=== PATIENT | male | born 1990 | race Caucasian/White ===

== ENCOUNTER 2021-05-22 19:06 | Emergency (ER) | payer OTHER ==
[2021-05-22] MEDS ORDERED: hydrOXYzine HCl 25 MG Tab PO ONE (20:25)
--- NOTE | 2021-05-22 20:30 | EDM.PDOC ---
ED HPI GENERAL MEDICAL PROBLEM - General Chief Complaint: Skin Complaint Stated Complaint: ALL OVER BODY HIVES Time Seen by Provider: 05/22/21 20:05 Source of Information: Reports: Patient, RN Notes Reviewed History Limitations: Reports: No Limitations - History of Present Illness INITIAL COMMENTS - FREE TEXT/NARRATIVE: Genaro presents today with complaints of itching rash/hives to body for 7 days. He reports the rash started mostly on his arms. The rash is now spread to his chest, abdomen, back, trunk, legs, scalp. No rash to buttocks, plantar surface of feet or palms. He was seen and evaluated at a walk in clinic in [place] on MondayMay 19 and started on prednisone with benadryl. He started prednisone on 05/21/2021. 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 He denies any other exposure to any changes, allergens or use of different topicals. He denies fever, chills, nausea, vomiting, diarrhea or other concerns. denies pain Pain Score (Numeric/FACES): 0 - Related Data Allergies Allergy/AdvReac Type Severity Reaction Status Date / Time No Known Allergies Allergy Verified 05/22/21 19:47 Home Meds: Home Meds FLUoxetine HCl [Prozac] 20 mg PO DAILY 05/22/21 [History] Gabapentin [Neurontin] 600 mg PO DAILY 05/22/21 [History] Triamcinolone Acetonide [Triamcinolone Acetonide 0.1% Crm] 1 applic TOP TID PRN 05/22/21 [History] predniSONE [Prednisone] 40 mg PO DAILY 05/22/21 [History] Past Medical History HEENT History: Reports: Impaired Vision, Other (See Below) Other HEENT History: contacts Musculoskeletal History: Reports: Other (See Below) Other Musculoskeletal History: right shoulder dislocation Psychiatric History: Reports: Anxiety, Depression - Infectious Disease History Infectious Disease History: Reports: Chicken Pox - Past Surgical History HEENT Surgical History: Reports: Tonsillectomy Social & Family History - Tobacco Use Tobacco Use Comment: Pt vapes - Recreational Drug Use Recreational Drug Use: No ED ROS GENERAL - Review of Systems Review Of Systems: See Below Constitutional: Denies: Fever, Chills, Malaise, Weakness, Fatigue, Diaphoresis HEENT: Reports: No Symptoms Respiratory: Reports: No Symptoms Cardiovascular: Reports: No Symptoms Endocrine: Reports: No Symptoms GI/Abdominal: Reports: No Symptoms : Reports: No Symptoms Musculoskeletal: Reports: No Symptoms Skin: Reports: Pruritis, Rash, Urticaria. Denies: Mottled, Pallor, Diaphoresis Neurological: Reports: No Symptoms Psychiatric: Reports: No Symptoms Hematologic/Lymphatic: Reports: No Symptoms Immunologic: Reports: No Symptoms ED EXAM, SKIN/RASH Exam: See Below Exam Limited By: No Limitations General Appearance: Alert, WD/WN, No Apparent Distress Course - Vital Signs Last Recorded V/S: Last Vital Signs Temp 36.6 C 05/22/21 19:55 Pulse 84 05/22/21 19:55 Resp 16 05/22/21 19:55 BP 124/65 05/22/21 19:55 Pulse Ox 95 05/22/21 19:55 - Orders/Labs/Meds Meds: Medications Discontinued Medications Generic Name Dose Route Start Last Admin Trade Name Tl PRN Reason Stop Dose Admin Hydroxyzine HCl 25 mg 05/22/21 20:25 05/22/21 20:48 Hydroxyzine Hcl 25 Mg Tab PO 05/22/21 20:26 25 mg ONETIME ONE Administration - Re-Assessments/Exams Free Text/Narrative Re-Assessment/Exam: 05/22/21 23:05 Telephone message left for patient on provided telephone number that skin rash could possibly be an adverse reaction from gabapentin and to follow up with his primary provider. Departure - Departure Time of Disposition: 20:30 Disposition: Home, Self-Care 01 Condition: Good Clinical Impression: Pruritic rash - Discharge Information Instructions: Pruritus, Rash, Adult, [id number] Referrals: PCP,None [Primary Care Provider] - Forms: ED Department Discharge Additional Instructions: You have been evaluated and treated for a itching rash of unknown cause. This could be a viral rash, ptiyriasis rosea or a dermatitis from an irritant. The treatment is the same. Take prednisone 40mg by mouth for 5 days, then 20mg by mouth for 4 days then 10mg by mouth for 4 days then stop. Take hydroxyzine 25mg by mouth four times a day as needed for itching. This can make you sleepy. Do not take with benadryl. Take cetirizine 10mg once a day in the morning for itching. You can also take loratadine 10mg by mouth once a day if needed for itching. Continue use of topical steroid as directed. If not better, follow up with a clinical care manager. Sepsis Event Note (ED) - Evaluation Sepsis Screening Result: No Definite Risk - Focused Exam Vital Signs: Vital Signs Temp Pulse Resp BP Pulse Ox 05/22/21 19:55 36.6 C 84 16 124/65 95 05/22/21 19:23 36.6 C 84 16 124/65 95 - Assessment/Plan Assessment:: Pruritic rash Plan: Patient evaluated and treated for a itching rash of unknown cause. This could be a viral rash, ptiyriasis rosea or a dermatitis from an irritant. The treatment is the same. Take prednisone 40mg by mouth for 5 days, then 20mg by mouth for 4 days then 10mg by mouth for 4 days then stop. Take hydroxyzine 25mg by mouth four times a day as needed for itching. This can make you sleepy. Do not take with benadryl. Take cetirizine 10mg once a day in the morning for itching. He can also take loratadine 10mg by mouth once a day if needed for itching. Continue use of topical steroid as directed. If not better, follow up with a clinical care manager.
== END 2021-05-22 20:50 | disposition home or self-care (01) ==
LOC: JP.ED 19:06
DX: L29.9 Pruritus, unspecified (principal); R21 Rash and other nonspecific skin eruption; Z79.899 Other long term (current) drug therapy
CPT/HCPCS: 99282; A9270